=== PATIENT | female | born 1965 | race Caucasian/White ===

== ENCOUNTER 2018-10-05 13:55 | Inpatient (IN) | payer OTHER ==
[2018-10-05] VITALS (14 sets, daily range): BP systolic 112–148; BP diastolic 50–92
[~2018-10-05] VITALS: Ht 157.5 cm; Wt 73.5 kg
[2018-10-05 14:17] LABS: ABSOLUTE BASOPHILS 0.1 thou/uL (0.0-0.2); ABSOLUTE EOSINOPHILS 0.1 thou/uL (0.0-0.7); ABSOLUTE LYMPHOCYTES 2.5 thou/uL (0.8-5.3); ABSOLUTE MONOCYTES 0.4 thou/uL (0.0-1.2); ABSOLUTE NEUTROPHILS 4.2 thou/uL (1.6-8.1); BASOPHILS 1.3 %; EOSINOPHILS 1.4 %; HEMATOCRIT 43.8 % (37.0-47.0); HEMOGLOBIN 14.7 gm/dL (12.0-15.0); LYMPHOCYTES 34.4 %; MCH 32.3 pg (26.0-34.0); MCHC 33.6 g/dL (28.0-37.0); MCV 96.3 fL (80.0-100.0); MONOCYTES 5.2 %; MPV 7.7 fl. (7.2-11.1); NUCLEATED RBCS 0 /100WBC; PLATELET COUNT* 221 thou/uL (150-400); POLYS 57.7 %; RBC 4.55 mil/uL (4.20-5.00); RDW-CV 13.6 % (10.5-14.5); WBC 7.3 thou/uL (4.0-11.0)
[2018-10-05 14:26] LABS: ANION GAP 9 mmol/L (7-16); BUN 12 mg/dL (7-18); CALCIUM 9.5 mg/dL (8.5-10.1); CHLORIDE 103 mmol/L (98-107); CO2 27 mmol/L (21-32); CREATININE 0.7 mg/dL (0.6-1.3); GLUCOSE 119 mg/dL (70-99); POTASSIUM 3.8 mmol/L (3.5-5.1); SODIUM 139 mmol/L (136-145)
[2018-10-05 14:27] LABS: APTT 26.1 Seconds (25.0-31.3)
[2018-10-05 14:37] LABS: ALBUMIN 4.1 g/dL (3.4-5.0); ALKALINE PHOSPHATASE 116 U/L (46-116); LIPASE 313 U/L (73-393); SGOT 19 U/L (15-37); SGPT 31 U/L (30-65); TOTAL BILIRUBIN 0.3 mg/dL (<0.1-1.0); TOTAL PROTEIN 8.2 g/dL (6.4-8.2); TROPONIN-I LEVEL <0.06 ng/mL (<0.06)
[2018-10-05 14:57] LABS: NT-PRO BRAIN NAT PEPTIDE 212 pg/mL (<300)
--- NOTE | 2018-10-05 17:47 | NUR ---
PT ORIENTED TO ROOM AND UNIT. BED LOW AND LOCKED, SIDE RAILS UP X 3, CALL [facility] IN [place]. PT WILL REMAIN ON BEDREST UNTIL 2099. WILL CONTINUE TO ASSESS.
--- NOTE | 2018-10-05 19:15 | NUR ---
ASSESS RIGHT GROIN WITH ANGLE HAYDEN AND EILEEN HAYDEN ONLY SLIGHT AMOUNT OF BLOOD ON DRESSING WITH NO HEMATOMA.
--- NOTE | 2018-10-05 23:08 | NUR ---
PT REMAINED ON BEDREST UNTIL 2100. MINIMAL SEROUS DRAINAGE FROM RIGHT GROIN SITE. DRESSING CHANGED AND MONITORED. NO HEMATOMA NOTED. RT TRACING SR ON MONITOR. UP TO BATHROOM WITH STEADY GAIT. IVF INFUSING ORDERED. PT IS ALERT & ORIENTED AND ABLE TO VOICE ALL NEEDS. VSS. CLWR.
[2018-10-06] VITALS: BP 104/56
[2018-10-06 04:00] VITALS: BP 121/50
[2018-10-06 04:26] LABS: RDW-CV 13.2 % (10.5-14.5)
[2018-10-06 04:35] LABS: HEMATOCRIT 39.2 % (37.0-47.0); HEMOGLOBIN 13.2 gm/dL (12.0-15.0); MCH 32.3 pg (26.0-34.0); MCHC 33.7 g/dL (28.0-37.0); MCV 95.9 fL (80.0-100.0); MPV 8.3 fl. (7.2-11.1); RBC 4.09 mil/uL (4.20-5.00); WBC 6.7 thou/uL (4.0-11.0)
[2018-10-06 04:54] LABS: CHOLESTEROL 133 mg/dL (<200); HDL CHOLESTEROL 46 mg/dL (>40); LDL CHOLESTEROL 77 mg/dL (<100); TC:HDL 2.9 Ratio (Not establshd); TRIGLYCERIDE 51 mg/dL (<150); VLDL 10 mg/dL (<40)
[2018-10-06 04:58] LABS: SERUM ASSESSMENT Clear
[2018-10-06 04:59] LABS: CREATININE 0.7 mg/dL (0.6-1.3)
[2018-10-06 05:02] LABS: CREATININE 0.7 mg/dL (0.6-1.3); POTASSIUM 4.2 mmol/L (3.5-5.1)
[2018-10-06 07:15] VITALS: BP 112/66
--- NOTE | 2018-10-06 09:08 | CON ---
[address] [address] CONSULTATION Name: JUAN R LIU Room: [address] IN .R.#: [id number] Admission: 10/05/18 Attend Phys: Chacho Lakhani MD Discharge: Date of : 63 Report #: [id number] THIS REPORT FOR: //name// CC: MYLENE Lakhani DATE OF SERVICE: 10/05/2018 CARDIOLOGY CONSULTATION: HISTORY OF PRESENT ILLNESS: The patient is a 53-year-old white female who I was asked to see in the Emergency Room today after she complained of chest pain. The patient notes that 19 years ago, she was having chest pain and underwent a cardiac catheterization in [place], [place]. She was told at that time she had a 30% stenosis. She was placed on Lipitor. She has done well since that time. However, the past few weeks, she has been having intermittent chest heaviness. It usually occurs with exertion and relieved with rest. It does go into her arms, makes her short of breath and nauseated. It occurs with minimal activity. She does get short of breath with exertion. She notes occasional flutter in her chest. She does have a chronic cough, but the pain is not related to coughing. She has had no bleeding. She denied any trauma to her chest. She has had recent syncope. She went to see her primary care physician in [place], [place], today and was recommended she come by ambulance to [facility] for admission. PAST MEDICAL HISTORY: Significant for neck surgery, back surgery, hyperlipidemia. HOME MEDICATIONS: Lipitor and aspirin. ALLERGIES: She has no known drug allergies. FAMILY HISTORY: Her brother had coronary artery bypass surgery. SOCIAL HISTORY: She is . She and her live in [place], they own a [employer]. She smokes a pack of cigarettes a day. No alcohol abuse. REVIEW OF SYSTEMS: She has had no history of stroke. She does have a chronic cough. She has had a peptic ulcer in the past. No history of liver disease, kidney disease, cancer or psychiatric illness, chronic skin condition. PHYSICAL EXAMINATION: GENERAL: Revealed a middle-aged female who appeared in no distress. VITAL SIGNS: She had a blood pressure of 130/80, pulse is 80, [place] [address] CONSULTATION Name: JUAN R LIU Room: [address]#: [id number] Admission: 10/05/18 Attend Phys: Chacho Lakhani MD Discharge: Date of : 63 Report #: [id number] HEENT: She was anicteric, conjunctiva pink. Mucous members moist. NECK: Neck veins are nondistended. No carotid bruits. Neck is supple. CHEST: Clear to auscultation. CARDIOVASCULAR: Regular rate and rhythm without murmur. ABDOMEN: Soft. EXTREMITIES: Had no edema. Posterior tibial pulse 2+ bilaterally. SKIN: Warm, dry. NEUROLOGIC: Nonfocal. RADIOLOGICAL DATA: ECG, sinus rhythm. There is minor ST segment depression in V4, V5 and V6. LABORATORY DATA: Today sodium 139, potassium 3.8, glucose 119. Liver function studies were normal. Troponin was 6. White blood cell count 7.3, hemoglobin 14.7. The patient had a chest x-ray in the Emergency Room today that showed normal heart size, clear lung west. IMPRESSION AND RECOMMENDATIONS: 1. Crescendo angina. Recommend cardiac catheterization. 2. Hyperlipidemia. The patient is on a statin drug. 3. Tobacco abuse. 4. Chronic bronchitis. 5. Lightheaded spell. I would continue to monitor the patient. <ELECTRONICALLY SIGNED> By: Dante Brown MD, FACC 10/06/18 0908 1509 [id number] Valente MD, FACC /nt
[2018-10-06 09:16] VITALS: BP 112/66
[2018-10-06] MEDS ORDERED: ASPIR 8181 MG PO ×2 (09:20→11:22)
[2018-10-06] MEDS ORDERED: PLAVIX 75 MG TA75 M1 PO ×2 (09:20→11:21)
[2018-10-06] MEDS ORDERED: CARVEDILOL3.125 MG PO (09:20)
--- NOTE | 2018-10-06 09:49 | NUR ---
PATIENT CARE ASSUMED AT 0700. PATIENT WALKING THE HALLWAYS PRIOR TO ASSUMING CARE. UP AD NATHALIE. STEADY. UPON ASSESSMENT, DENIES ANY CHEST PAIN, NAUSEA, VOMITING, SOA. PATIENT RIGHT GROIN SITE HAS DRIED DRAINAGE, BUT REMAINS SOFT WITHOUT EVIDENCE OF HEMATOMA. PATIENT GIVEN EDUCATION ON MEDICATIONS, BUT WISHES TO REINFORCE WITH PHYSICIAN. DENIES FURTHER NEEDS FROM NURSE. UP EATING BREAKFAST.
[2018-10-06] MEDS ORDERED: ATORVASTATIN CA40 MG PO (11:22)
[2018-10-06] MEDS ORDERED: NITROGLYCERIN0.4 MG SUBLING (11:26)
[2018-10-06] MEDS ORDERED: PROTONIX 20 MG20 M1 PO (11:26)
[2018-10-06] MEDS ORDERED: LIPITOR 20 MG T20 M1 PO (11:29)
[2018-10-06 11:31] VITALS: BP 112/66
--- NOTE | 2018-10-06 12:02 | NUR ---
PATIENT DISCHARGED HOME. SCRIPTS GIVEN. PATIENT WILL FILL PLAVIX AT [facility] ON HER WAY HOME. PATIENT VOICED UNDERSTANDING OF DISCHARGE ISNTRUCTIONS. REFUSED ESCORT OUT. WANTS TO WAIT FOR DOWNSTAIRS. LEFT UNIT AT 1202 AMBULATORY. IV DISCONTINUED BY PLATE AND FRAME FILTER OPERATOR.
[2018-10-06 19:11] LABS: GLYCOHEMOGLOBIN (HGB A1C) 7.1 % (4.8-5.6)
--- NOTE | 2018-10-07 10:09 | EKG ---
[place] [address] ELECTROCARDIOGRAM REPORT Name: JUAN R LIU Room: [address] DIS IN M.R.#: [id number] Admission: 10/05/18 Attend Phys: Chacho Lakhani MD Discharge: 10/06/18 Date of : 63 Report #: [id number] THIS REPORT FOR: //name// [facility] ED Test Date: 2018-10-05 Test Time: 13:59:20 Pat Name: JUAN R LIU Department: Room: [address] Gender: F Mathematics Department Chair: Jeff CASTILLO : 1965 Requested By: Cristofer Valente Order Number: [id number] Aryan MD: Dante Brown Measurements Intervals [place] Rate: 67 P: 46 FL: 123 QRS: 67 QRSD: 106 T: 53 QT: 363 QTc: 383 Interpretive Statements Sinus rhythm with sinus arrhythmia Nonspecific repol abnormality, diffuse leads No previous ECG available for comparison Electronically Signed On 10-07-2018 10:08:55 TRANSIT SURVEY WORKER by Dante Brown [email or web address] <ELECTRONICALLY SIGNED> By: Dante Brown MD, [facility] 10/07/18 1008 1359 58 Dante Brown MD, FAC /EPI
--- NOTE | 2018-10-07 10:12 | EKG ---
[place] [address] ELECTROCARDIOGRAM REPORT Name: JUAN R LIU Room: [address] IN M.R.#: [id number] Admission: 10/05/18 Attend Phys: Chacho Lakhani MD Discharge: 10/06/18 Date of : 63 Report #: [id number] THIS REPORT FOR: //name// [facility] Test Date: 2018-10-05 Test Time: 17:20:41 Pat Name: JUAN R LIU Department: Room: [facility] Gender: F Shank Archer: KSENIA MYERS : 1965 Requested By: Jerson Rivera Order Number: [id number] MD: Dante Brown Measurements Intervals [place] Rate: 71 P: 39 NC: 137 QRS: 58 QRSD: 105 T: 30 QT: 378 QTc: 411 Interpretive Statements Sinus rhythm Borderline repolarization abnormality Minimal ST elevation, lateral leads No previous ECG available for comparison Electronically Signed On 10-07-2018 10:12:35 NEON GLASS BLOWER by Dante Brown [email or web address] <ELECTRONICALLY SIGNED> By: Dante Brown MD, [facility] 10/07/18 1012 1720 1720 Dante Brown MD, [facility] /EPI
--- NOTE | 2018-10-07 10:20 | EKG ---
[place] [address] ELECTROCARDIOGRAM REPORT Name: JUAN R LIU Room: [address] IN M.R.#: [id number] Admission: 10/05/18 Attend Phys: Chacho Lakhani MD Discharge: 10/06/18 Date of : 63 Report #: [id number] THIS REPORT FOR: //name// [facility] Test Date: 2018-10-06 Test Time: 08:53:30 Pat Name: JUAN R LIU Department: Room: [address] Gender: F Hr Clerk: : 1965 Requested By: Cristofer Valente Order Number: [id number] Reading MD: Dante Brown Measurements Intervals [place] Rate: 61 P: 50 AL: 119 QRS: 64 QRSD: 107 T: 49 QT: 411 QTc: 414 Interpretive Statements Sinus rhythm Borderline short AL interval No previous ECG available for comparison Electronically Signed On 10-07-2018 10:20:34 SHACTOR by Dante Brown [email or web address] <ELECTRONICALLY SIGNED> By: Dante Brown MD, [facility] 10/07/18 1020 0853 0853 Dante Brown MD, FACC /EPI
--- NOTE | 2018-10-08 11:38 | CARD ---
[address] [address] CARDIAC CATH REPORT Name: JUAN R LIU Room: [address]#: [id number] Admission: 10/05/18 Attend Phys: Chacho Lakhani MD Discharge: 10/06/18 Date of : 63 Report #: [id number] THIS REPORT FOR: //name// APPROVED REPORT Study performed: 10/05/2018 15:14:17 Patient Details Patient Status: ED Room #: The patient is a 53 year-old female Event Personnel Cristofer Valente Team Leader Surgery, Aaron Castaneda Haley, Jessica RTR Monitor, Ifrah Daniel PARK INTERPRETIVE RANGER Monitor, Mary Kay Corona Fingerprint Technician, Rosemarie Salas RN Fingerprint Technician Procedures Performed Art Access - R femoral artery* KAYLEY Place w/wo Plasty Single RCA Left Heart Cath w/or w/o Coronaries LHC Hemostasis w/ Angioseal Indication Abnormal ECG, Dizziness and vertigo, Unstable angina Risk Factors Tobacco History () Admission/Lab Medications/Medications given during procedure Glycoprotein IllbIlla Inhibitors, Heparin Unfract. Procedure Narrative The patient was brought electively to the Cardiac Catheterization Laboratory and was prepped and draped in a sterile manner. The right femoral was infiltrated with 2% Lidocaine subcutaneous anesthesia. A 6fr Ultimum Sheath sheath was inserted into the right femoral artery. Coronary angiography was performed using coronary diagnostic catheters. The right coronary system was accessed and visualized with a Diagnostic 6Fr JR4 catheter. The left coronary system was accessed and visualized with a Diagnostic 6Fr JL4 catheter. The left ventricle was accessed and visualized with a Diagnostic 6Fr angled pigtail catheter. Left ventricular/Aortic Valve gradient assessed . Left ventriculogram was performed in QUINTANA projection. Closure device was deployed with a 6 Fr Angioseal STS 6Fr. The patient tolerated the procedure well and there [place] [address] CARDIAC CATH REPORT Name: JUAN R LIU Room: [address]#: [id number] Admission: 10/05/18 Attend Phys: Chacho Lakhani MD Discharge: 10/06/18 Date of : 63 Report #: [id number] procedure. There was no hematoma. patient had an abnormal Cory's test Intraoperative Conscious Sedation Sedation start time: 16:09 Case end Time: 16:42 Fentanyl 50 mcg Versed 5 mg Fluoro Time: 2.8 minutes Dose: DAP 80592 cGycm2 639.13 mGy Contrast Type and Amount: Omnipaque 150 ml Coronary Angiography The patient's coronary anatomy is right dominant. Diagnostic Cath Left Main 0% stenosis LAD 0% stenosis Circumflex 0% stenosis Right Coronary 30% proximal and 80% distal stenosis Left Ventriculography The left ventricle is normal in size with normal contractility. The left ventricular ejection fraction is estimated to be 60-65%. Left ventricular wall motion abnormalities are not present. There is no mitral insufficiency. Hemodynamics The aortic pressure is 110/75 mmHg with a mean of 85 mmHg. The left ventricular pressure is 98/15 mmHg with a mean of mmHg. The left ventricular end diastolic pressure is 17 mmHg. There was no gradient across the aortic valve upon pullback. Pullback from the left ventricle to the aorta revealed no gradient across the aortic valve. PCI Technique Lesion Anticoagulation was achieved with Heparin. Patient was preloaded with Plavix. Percutaneous coronary intervention was performed on the distal right coronary artery. The lesion stenosis prior to intervention was 80% with FIDEL 3 flow. A 6FR JCR 4 100CM Guide Catheter was used to engage the rca ostium. A BMW 190cm Interventional Guidewire was used to cross the lesion. STENT DEPLOYMENT A drug-eluting stent Xience Tasneem [id number] was inserted and inflated up to 12.00atm for 12seconds. [place] [address] CARDIAC CATH REPORT Name: JUAN R LIU Room: [address]#: [id number] Admission: 10/05/18 Attend Phys: Chacho Lakhani MD Discharge: 10/06/18 Date of : 63 Report #: [id number] the following post-stent deployment results: 0% stenosis. Additional Inflation: 14.00atm for 9seconds. Additional Inflation: 17.00atm for 6seconds. Final angiography reveals 0 % stenosis with FIDEL 3 flow. Conclusion 1. 80% stenosis noted of the distal rca 2. normal LV function 3. successful placement of a single drug eluting stent in the distal rca Recommendations Smoking Cessation Cardiac Rehabilitation Referral Aggressive Medical Therapy Medications Administered Clopidogrel <ELECTRONICALLY SIGNED> By: Cristofer Valente MD, [facility] 10/08/18 1138 1138 [id number] Valente MD, [facility] /INF
== END 2018-10-06 12:02 | disposition home or self-care (01) | DRG 247 ==
LOC: M.ERS 13:55 → M.TBA-CV 14:51 → M.ERS 15:38 → M.2W 17:08
PROVIDERS: Emergency Medicine Emergency Medical Services; Internal Medicine Cardiovascular Disease; ADMIT Family Medicine
PROC: B2111ZZ Fluoroscopy of Multiple Coronary Arteries using Low Osmolar Contrast (ICD-10-PCS; principal; 2018-10-05)
PROC: 027034Z Dilation of Coronary Artery, One Artery with Drug-eluting Intraluminal Device, Percutaneous Approach (ICD-10-PCS; principal; 2018-10-05)
PROC: 4A023N7 Measurement of Cardiac Sampling and Pressure, Left Heart, Percutaneous Approach (ICD-10-PCS; principal; 2018-10-05)
PROC: B2151ZZ Fluoroscopy of Left Heart using Low Osmolar Contrast (ICD-10-PCS; principal; 2018-10-05)
DX: I25.110 Atherosclerotic heart disease of native coronary artery with unstable angina pectoris (principal); I24.9 Acute ischemic heart disease, unspecified; E78.5 Hyperlipidemia, unspecified; J42 Unspecified chronic bronchitis; I10 Essential (primary) hypertension; K21.9 Gastro-esophageal reflux disease without esophagitis; F17.210 Nicotine dependence, cigarettes, uncomplicated; I95.2 Hypotension due to drugs; T46.4X5A Adverse effect of angiotensin-converting-enzyme inhibitors, initial encounter; T44.7X5A Adverse effect of beta-adrenoreceptor antagonists, initial encounter; Y92.89 Other specified places as the place of occurrence of the external cause; Z79.899 Other long term (current) drug therapy; Z91.041 Radiographic dye allergy status; Z71.6 Tobacco abuse counseling; Z82.49 Family history of ischemic heart disease and other diseases of the circulatory system; Z83.3 Family history of diabetes mellitus